=== PATIENT | female | born 1980 | race Caucasian/White ===

== ENCOUNTER → 2018-11-17 | Outpatient (CLI) | payer BC, OTHER ==
[~2018-11-17] MED LIST: IBU800 PO; PER PO; PREN-67 PO
--- NOTE | 2018-11-18 14:37 | RADIOLOGY IMAGING REPORT ---
[place] [facility] [place]: SAMUEL ORTEZ : [id number] MR: [id number] V: [id number] EXAM DATE: [id number] ORDERING PHYSICIAN: JASMIN HODGE TECHNOLOGIST: Scarlet España PROCEDURE: BILATERAL DIGITAL SCREENING MAMMOGRAM WITH CAD ASSISTED INTERPRETATION & 3D TOMOSYNTHESIS REASON FOR STUDY: Screening. FAMILY HISTORY OF BREAST CANCER: None. BREAST PROCEDURES/TREATMENTS: None. COMPARISON: None. VIEWS OBTAINED: 2D & 3D full field CC & MLO. BREAST DENSITY: The breasts are heterogeneously dense which can obscure small masses. IMPRESSION: BIRADS 1: Negative. DIAGNOSTIC CATEGORY 1--NEGATIVE. RECOMMENDATIONS: ROUTINE MAMMOGRAM AND CLINICAL EVALUATION. Dictated by: Leaenn Munroe M.D. on 11/17/2018 at 17:03 Transcribed by: MARIXA on 11/18/2018 at 8:55 Approved by: Leeann Munroe M.D. on 11/18/2018 at 14:36 [facility]
== END ==
LOC: MAMO 00:39
PROVIDERS: ATTEND Physician Assistant
DX: Z12.31 Encounter for screening mammogram for malignant neoplasm of breast (principal)
CPT/HCPCS: 77063; 77067